=== PATIENT | female | born 1970 | race Caucasian/White ===

== ENCOUNTER 2017-11-07 00:52 | Emergency (ER) | payer MEDICAID ==
[~2017-11-07] VITALS: Ht 152.4 cm; Wt 55.8 kg
[2017-11-07 00:59] VITALS: Ht 152.4 cm; Wt 55.8 kg
[2017-11-07 02:32] LABS: BASOPHIL % 0.3 % (0-2); PLATELET COUNT 238 x10^3mcL (130-400); RED CELL DISTRIBUTION WIDTH 13.2 % (11.5-14.5)
[2017-11-07 02:37] LABS: CALCIUM 8.5 mg/dL (8.5-10.1); CARBON DIOXIDE 22.5 mmol/L (21-32); CHLORIDE SERUM 101 mmol/L (98-107); CREATININE SERUM 0.8 mg/dL (0.6-1.0); GFR1 > 60 mL/min; GLUCOSE SERUM 114 mg/dL (74-106); POTASSIUM SERUM 3.9 mmol/L (3.5-5.1); SODIUM SERUM 136 mmol/L (136-145)
[2017-11-07 02:53] LABS: ALBUMIN 3.4 g/dL (3.4-5.0); ALKALINE PHOSPHATASE 80 U/L (46-116); ALT/SGPT 21 U/L (14-59); AST/SGOT 19 U/L (15-37); BILIRUBIN TOTAL 0.45 mg/dL (0.20-1.00)
[2017-11-07 03:00] LABS: TOTAL PROTEIN, SERUM 8.4 g/dL (6.4-8.2)
[2017-11-07 03:01] LABS: CK-MB 0.9 ng/mL (0-3.6)
[2017-11-07 06:43] VITALS: BP 103/74
== END 2017-11-07 06:43 | disposition home or self-care (01) ==
LOC: ED 00:52
PROVIDERS: Emergency Medicine
DX: J18.9 Pneumonia, unspecified organism (principal)
CPT/HCPCS: 36415; 85378; J7030; Q0092; Q9967

== ENCOUNTER 2018-04-13 20:10 | Emergency (ER) | payer MEDICAID ==
[~2018-04-13] VITALS: Ht 152.4 cm; Wt 55.8 kg
[2018-04-13 20:19] VITALS: Ht 152.4 cm; Wt 55.8 kg
[2018-04-14 01:30] VITALS: BP 101/75
== END 2018-04-14 01:30 | disposition home or self-care (01) ==
LOC: ED 20:10
DX: A08.4 Viral intestinal infection, unspecified (principal); E03.9 Hypothyroidism, unspecified; M35.00 Sjogren syndrome, unspecified; Z98.890 Other specified postprocedural states
CPT/HCPCS: J2765; Q0162

== ENCOUNTER 2018-11-14 16:03 | Emergency (ER) | payer MEDICAID ==
[~2018-11-14] VITALS: Ht 154.9 cm; Wt 55.3 kg
[2018-11-14 16:24] VITALS: Ht 154.9 cm; Wt 55.3 kg
[2018-11-14 18:40] VITALS: BP 116/66
== END 2018-11-14 18:40 | disposition home or self-care (01) ==
LOC: ED 16:03
DX: N12 Tubulo-interstitial nephritis, not specified as acute or chronic (principal); M35.00 Sjogren syndrome, unspecified
CPT/HCPCS: J0696; J1885; J2405; J7030